=== PATIENT | female | born 1955 | race Caucasian/White ===

== ENCOUNTER → 2016-07-29 | Outpatient (CLI) | payer BC ==
[~2016-07-29] MED LIST: TRAMADOL HCL50 MG PO
== END | disposition home or self-care (01) ==
LOC: CDC 16:03
DX: R94.31 Abnormal electrocardiogram [ECG] [EKG] (principal); C54.1 Malignant neoplasm of endometrium
CPT/HCPCS: 93000

== ENCOUNTER 2016-07-30 07:26 | Inpatient (IN) | payer BC ==
[~2016-07-30] VITALS: Ht 160 cm; Wt 77.6 kg
[2016-07-30 08:38] VITALS: BP 138/75
[2016-07-30 12:40] LABS: MCV 91.4 FL (83-99)
[2016-07-30 14:11] VITALS: BP 132/68
[2016-07-30 16:00] LABS: HEMATOCRIT 35.5 % (36.0-46.0); MCH 29.4 PG (29.0-34.0); MCHC 32.1 G/DL (30.0-36.0); MCV 91.5 FL (83-99); MEAN PLAT.VOLUME 10.3 uM^3 (9.5-12.4); PLATELET COUNT 283 K/uL (156-360); RBC DIS.WIDTH-CV 13.2 % (11.8-14.6); RED BLOOD COUNT 3.88 M/uL (3.80-5.20)
[2016-07-30 16:30] LABS: ANION GAP 8 MEQ/L (2-14); CHLORIDE 101 MEQ/L (99-109); GFR ESTIMATE (CALCULATED) > 59 mL/min/; POTASSIUM 4.1 MEQ/L (3.7-5.4); SAMPLE HEMOLYSIS CHECK 0; SAMPLE ICTERIC CHECK 0; SAMPLE LIPEMIA CHECK 0; SODIUM 136 MEQ/L (136-147); UREA NITROGEN (BUN) 10 mg/dL (9-23)
[2016-07-30 16:31] LABS: WHITE BLOOD COUNT 10.7 K/uL (4.1-10.2)
[2016-07-30 16:48] LABS: GLUCOSE 167 mg/dL (70-99)
[2016-07-30 16:51] VITALS: BP 113/61
[2016-07-30 19:12] VITALS: BP 116/58
[2016-07-30 23:39] VITALS: BP 98/54
[2016-07-31 03:29] VITALS: BP 99/57
[2016-07-31 06:33] LABS: HEMATOCRIT 33.3 % (36.0-46.0); MCH 30.3 PG (29.0-34.0); MCHC 32.4 G/DL (30.0-36.0); MCV 93.3 FL (83-99); MEAN PLAT.VOLUME 10.6 uM^3 (9.5-12.4); PLATELET COUNT 283 K/uL (156-360); RBC DIS.WIDTH-SD 44.3 % (39-53); RED BLOOD COUNT 3.57 M/uL (3.80-5.20); WHITE BLOOD COUNT 9.1 K/uL (4.1-10.2)
[2016-07-31 06:55] LABS: ANION GAP 7 MEQ/L (2-14); CHLORIDE 98 MEQ/L (99-109); GFR ESTIMATE (CALCULATED) > 59 mL/min/; POTASSIUM 3.7 MEQ/L (3.7-5.4); SAMPLE HEMOLYSIS CHECK 0; SAMPLE ICTERIC CHECK 0; SAMPLE LIPEMIA CHECK 0; SODIUM 133 MEQ/L (136-147); UREA NITROGEN (BUN) 7 mg/dL (9-23)
[2016-07-31 07:01] LABS: GLUCOSE 120 mg/dL (70-99)
[2016-07-31 08:15] VITALS: BP 123/71
[2016-07-31 10:57] VITALS: BP 104/54
[2016-07-31 14:46] LABS: HEMATOCRIT 30.6 % (36.0-46.0); MCHC 32.7 G/DL (30.0-36.0); MCV 91.9 FL (83-99); MEAN PLAT.VOLUME 10.3 uM^3 (9.5-12.4); PLATELET COUNT 281 K/uL (156-360); RBC DIS.WIDTH-CV 12.9 % (11.8-14.6); RBC DIS.WIDTH-SD 43.5 % (39-53); RED BLOOD COUNT 3.33 M/uL (3.80-5.20); WHITE BLOOD COUNT 10.4 K/uL (4.1-10.2)
[2016-07-31 15:03] LABS: ANION GAP 6 MEQ/L (2-14); CHLORIDE 93 MEQ/L (99-109); POTASSIUM 3.9 MEQ/L (3.7-5.4); SAMPLE HEMOLYSIS CHECK 1; SAMPLE ICTERIC CHECK 0; SAMPLE LIPEMIA CHECK 0
[2016-07-31 15:04] LABS: SODIUM 126 MEQ/L (136-147)
[2016-07-31 15:07] LABS: GFR ESTIMATE (CALCULATED) > 59 mL/min/; GLUCOSE 174 mg/dL (70-99); UREA NITROGEN (BUN) 6 mg/dL (9-23)
[2016-07-31 16:33] VITALS: BP 128/65
[2016-07-31 19:20] VITALS: BP 108/58
[2016-07-31 23:33] VITALS: BP 117/64
[2016-08-01 02:45] VITALS: BP 102/58
[2016-08-01 06:58] LABS: HEMATOCRIT 32.8 % (36.0-46.0); MCH 30.3 PG (29.0-34.0); MCHC 33.5 G/DL (30.0-36.0); MCV 90.4 FL (83-99); MEAN PLAT.VOLUME 10.4 uM^3 (9.5-12.4); PLATELET COUNT 273 K/uL (156-360); RBC DIS.WIDTH-CV 12.5 % (11.8-14.6); RBC DIS.WIDTH-SD 41.6 % (39-53); RED BLOOD COUNT 3.63 M/uL (3.80-5.20); WHITE BLOOD COUNT 7.6 K/uL (4.1-10.2)
[2016-08-01 07:21] LABS: ANION GAP 9 MEQ/L (2-14); CHLORIDE 96 MEQ/L (99-109); GFR ESTIMATE (CALCULATED) > 59 mL/min/; GLUCOSE 98 mg/dL (70-99); POTASSIUM 3.5 MEQ/L (3.7-5.4); SAMPLE HEMOLYSIS CHECK 0; SAMPLE ICTERIC CHECK 0; SAMPLE LIPEMIA CHECK 0; UREA NITROGEN (BUN) 4 mg/dL (9-23)
[2016-08-01 07:22] LABS: SODIUM 135 MEQ/L (136-147)
[2016-08-01 07:55] VITALS: BP 128/69
[2016-08-01] MEDS ORDERED: TRAMADOL HCL50 MG PO (09:31)
== END 2016-08-01 10:26 | disposition home or self-care (01) | DRG 740 ==
LOC: 2SOUTH 07:26 → 2EASTP 13:11 → 2SOUTH 15:44 → 2EASTP 08-01 10:26
PROVIDERS: Obstetrics & Gynecology Gynecologic Oncology
DX: C54.1 Malignant neoplasm of endometrium (principal); E22.2 Syndrome of inappropriate secretion of antidiuretic hormone
CPT/HCPCS: 36415; 80048; 80048 91; 80053; 81003; 85014; 85018; 85025; 85027; 85610; 85730; 86850; 86900; 86901; 86920; 87086; 88305; 88309; 93000; J0330; J0690; J1100; J1170; J1650; J1885; J2250; J2270; J2405; J2710; J2765; J3010

== ENCOUNTER 2016-08-06 05:09 | Observation (INO) | payer BC ==
[~2016-08-06] VITALS: Ht 160 cm; Wt 74.8 kg
[2016-08-06 05:47] LABS: CHLORIDE 100 mEq/L (99-109); POTASSIUM 3.6 mEq/L (3.7-5.4); SODIUM 137 mEq/L (136-147)
[2016-08-06 05:49] LABS: GLUCOSE 112 mg/dL (70-99)
[2016-08-06 05:50] LABS: ANION GAP 11 MEQ/L (2-14)
[2016-08-06 05:51] LABS: TOTAL BILIRUBIN 1.1 mg/dL (0.0-1.0)
[2016-08-06 05:51] LABS: HEMATOCRIT 37.4 % (36.0-46.0); MCH 30.1 PG (29.0-34.0); MCHC 33.4 G/DL (30.0-36.0); MCV 90.1 FL (83-99); MEAN PLAT.VOLUME 9.7 uM^3 (9.5-12.4); PLATELET COUNT 425 K/uL (156-360); RBC DIS.WIDTH-CV 12.9 % (11.8-14.6); RBC DIS.WIDTH-SD 41.5 % (39-53); RED BLOOD COUNT 4.15 M/uL (3.80-5.20); WHITE BLOOD COUNT 12.2 K/uL (4.1-10.2)
[2016-08-06 05:53] LABS: ALKALINE PHOSPHATASE 93 IU/L (3-129); GFR ESTIMATE (CALCULATED) > 59 mL/min/
[2016-08-06 05:54] LABS: UREA NITROGEN (BUN) 9 mg/dL (9-23)
[2016-08-06 06:12] LABS: LIPASE 15 U/L (1.0-51.0)
[2016-08-06 07:57] LABS: ADD MIUA? NO; BILIRUBIN NEGATIVE; BLOOD NEGATIVE; GLUCOSE (STRIP) NEGATIVE; KETONES TRACE; LEUKOCYTES NEGATIVE; NITRITE NEGATIVE; PROTEIN (STRIP) NEGATIVE; SPECIFIC GRAVITY 1.031 (1.000-1.030); UCUL ADDED? NO; UROBILINOGEN 0.2 MG/DL (0.2-1.0)
[2016-08-06 07:58] LABS: COLOR LT YELLOW ((YELLOW))
[2016-08-06 11:55] VITALS: BP 148/85
[2016-08-06 17:19] VITALS: BP 132/58
[2016-08-06 17:50] LABS: C DIFF TOXIN ND (NEGATIVE)
[2016-08-06 20:11] VITALS: BP 122/62
[2016-08-07 00:20] VITALS: BP 111/58
[2016-08-07 04:01] VITALS: BP 110/54
[2016-08-07 06:15] VITALS: BP 105/52
[2016-08-07 06:43] LABS: HEMATOCRIT 31.8 % (36.0-46.0); MCH 29.3 PG (29.0-34.0); MCHC 32.1 G/DL (30.0-36.0); MCV 91.4 FL (83-99); MEAN PLAT.VOLUME 10.1 uM^3 (9.5-12.4); PLATELET COUNT 348 K/uL (156-360); RBC DIS.WIDTH-CV 13.4 % (11.8-14.6); RBC DIS.WIDTH-SD 44.6 % (39-53); RED BLOOD COUNT 3.48 M/uL (3.80-5.20); WHITE BLOOD COUNT 8.8 K/uL (4.1-10.2)
[2016-08-07 06:59] LABS: ANION GAP 10 MEQ/L (2-14); CHLORIDE 101 MEQ/L (99-109); GFR ESTIMATE (CALCULATED) > 59 mL/min/; GLUCOSE 87 mg/dL (70-99); POTASSIUM 3.7 MEQ/L (3.7-5.4); SAMPLE HEMOLYSIS CHECK 0; SAMPLE ICTERIC CHECK 0; SAMPLE LIPEMIA CHECK 0; SODIUM 137 MEQ/L (136-147); UREA NITROGEN (BUN) 8 mg/dL (9-23)
[2016-08-07] MEDS ORDERED: CIPRO500 MG PO (09:04)
[2016-08-07] MEDS ORDERED: FLAGYL500 MG PO (09:04)
[2016-08-07] MEDS ORDERED: MIRALAX17 GM PO (09:04)
== END 2016-08-07 11:20 | disposition home or self-care (01) ==
LOC: EME 05:09 → EDOF 08:22 → 2EAST 08:22
PROVIDERS: Internal Medicine
DX: K52.9 Noninfective gastroenteritis and colitis, unspecified (principal); R10.9 Unspecified abdominal pain; K59.00 Constipation, unspecified; Z85.42 Personal history of malignant neoplasm of other parts of uterus; Z90.710 Acquired absence of both cervix and uterus; Z98.890 Other specified postprocedural states
CPT/HCPCS: 74022; 74177; 80048; 80053; 81003; 83605; 83690; 85027; 87040; 87493; 87506; 99281; 99284; G0378; J0744; J1650; J1885; J2270; J2405; J7030; S0028; S0030